=== PATIENT | female | born 1955 | race Caucasian/White ===

== ENCOUNTER → 2017-07-07 | Outpatient (CLI) | payer BC, OTHER ==
[~2017-07-07] MED LIST: ADAL40KI SC; ADAL40PE SC; AZAT50TA9 PO; CARI350T14 PO; CELE200C PO; CYAN10005 PO; CYANOCOBALAMIN IM; CYCL-259 PO; DOCU50CA3 PO; FURO20TA3 PO; GABA300C10 PO; HYDR-3245 PO; MULT-726 PO; ONDA4TAB13 SL; OXYC1TAB7 PO; OXYC5CAP2 PO; POLY17PO5 PO; POTA20PA25 PO; RANI150T4 PO; SERT100T5 PO; STOOL SOFTENER PO; TIZA4TAB PO; VITAMIN B-12 IM; ZOLP6.252 PO; [UNRECOGNIZED DRUG - REMARK]
[2017-07-07 14:58] LABS: HEMATOCRIT 46.5 % (34.6-47.8); HEMOGLOBIN 15.5 g/dL (11.7-16.4); WHITE BLOOD COUNT 6.3 x10^3/uL (3.4-10)
[2017-07-07 15:10] LABS: BLOOD UREA NITROGEN 12 mg/dL (7-18)
[2017-07-07 15:12] LABS: ASPARTATE AMINO TRANSFERASE 13 U/L (15-37)
== END | disposition home or self-care (01) ==
LOC: STAR 14:05
PROVIDERS: ATTEND Orthopaedic Surgery
DX: Z01.818 Encounter for other preprocedural examination (principal); M17.12 Unilateral primary osteoarthritis, left knee; R79.1 Abnormal coagulation profile; Z79.899 Other long term (current) drug therapy
CPT/HCPCS: 36415; 80053; 83036; 85025; 85610; 85730; 87081; 93005

== ENCOUNTER 2017-07-14 07:48 | Inpatient (IN) | payer BC, OTHER ==
[~2017-07-14] VITALS: Ht 172.7 cm; Wt 119.0 kg
[2017-07-14] MEDS ORDERED: LACTATED RINGERS 1,000 ML IV SCH (07:58)
[2017-07-14] MEDS ORDERED: SCOPOLAMINE PATCH, 1.5MG PATCH.TD72 TD STA (07:59)
[2017-07-14] MEDS ORDERED: FAMOTIDINE 20 MG TABLET PO STA (07:59)
[2017-07-14] MEDS ORDERED: ACETAMINOPHEN 500 MG TABLET PO STA (07:59)
[2017-07-14] MEDS ORDERED: OxyconTIN ER 10 MG TAB.ER PO STA (08:02)
[2017-07-14] MEDS ORDERED: VANCOMYCIN PER PHARMACY MC ONE (08:06)
[2017-07-14] MEDS ORDERED: ACETAMINOPHEN 500 MG TABLET ONE (08:48)
[2017-07-14] MEDS ORDERED: FAMOTIDINE 40 MG TABLET ONE (08:49)
[2017-07-14] MEDS ORDERED: OxyconTIN ER 10 MG TAB.ER ONE (08:49)
[2017-07-14] MEDS ORDERED: SCOPOLAMINE PATCH, 1.5MG PATCH.TD72 TD ONE ×2 (08:50→11:00)
[2017-07-14] MEDS ORDERED: VANCOMYCIN 2,000 MG in SODIUM CHLORIDE 0.9% 500 ML IV ONE (09:30)
[2017-07-14] MEDS ORDERED: FENTANYL PF 250 MCG/5ML ONE ×2 (09:56→10:56)
[2017-07-14] MEDS ORDERED: MIDAZOLAM 1 MG/ML, 2ML ONE ×2 (09:56→10:56)
[2017-07-14] MEDS ORDERED: BUPIVACAINE/PF 0.25% ONE (09:57)
[2017-07-14] MEDS ORDERED: KETOROLAC 60 MG/2 ML ONE (10:03)
[2017-07-14] MEDS ORDERED: TRANEXAMIC ACID 100 MG/ML, 10ML ONE ×2 (10:03)
[2017-07-14] MEDS ORDERED: EPINEPHRINE 1 MG/ML, 1ML ONE (10:04)
[2017-07-14] MEDS ORDERED: SODIUM CHLORIDE 0.9% 100 ML ONE (10:04)
[2017-07-14] MEDS ORDERED: ROPIvacaine/PF 0.5%, 30 ML ONE (10:04)
[2017-07-14] MEDS ORDERED: DEXAMETHASONE 4 MG/ML, 1ML ONE ×2 (10:25→10:56)
[2017-07-14] MEDS ORDERED: PROPOFOL 10 MG/ML, 20ML ONE ×2 (10:25→10:56)
[2017-07-14] MEDS ORDERED: CEFAZOLIN 1,000 MG ONE ×2 (10:25→10:56)
[2017-07-14] MEDS ORDERED: ONDANSETRON 2MG/ML, 2ML ONE ×2 (10:25→10:56)
[2017-07-14] MEDS ORDERED: ACETAMINOPHEN 500 MG TABLET PO ONE (10:30)
[2017-07-14] MEDS ORDERED: KETAMINE 10 MG/ML, 20ML ONE ×2 (10:56→11:08)
[2017-07-14] MEDS ORDERED: HYDROmorphone 2 MG/ML, 1ML ONE ×2 (10:56→11:08)
[2017-07-14] MEDS ORDERED: FAMOTIDINE 20 MG TABLET PO PRN (11:00)
[2017-07-14] MEDS ORDERED: SENNA/DOCUSATE TABLET PO PRN (11:00)
[2017-07-14] MEDS ORDERED: MAGNESIUM HYDROXIDE 8%, 30ML UDC PO PRN (11:00)
[2017-07-14] MEDS ORDERED: ACETAMINOPHEN 650 MG/20.3 ML UDC PO PRN (11:00)
[2017-07-14] MEDS ORDERED: ZOLPIDEM 5MG TABLET PO PRN (11:00)
[2017-07-14] MEDS ORDERED: BISACODYL 10 MG SUPP PR PRN (11:00)
[2017-07-14] MEDS ORDERED: ONDANSETRON 2MG/ML, 2ML IV PRN (11:00)
[2017-07-14] MEDS ORDERED: DIPHENHYDRAMINE 50 MG CAPSULE PO PRN (11:00)
[2017-07-14] MEDS ORDERED: ONDANSETRON ODT 4 MG PO PRN (11:00)
[2017-07-14] MEDS ORDERED: ROPIvacaine/PF 0.2%, 100ML 550 ML (check volume) INJ ONE (11:30)
[2017-07-14] MEDS ORDERED: VANCOMYCIN 1,000 MG ONE (11:51)
[2017-07-14] MEDS ORDERED: ACETAMINOPHEN 325 MG TABLET PO PRN (12:00)
[2017-07-14] MEDS ORDERED: DIAZEPAM 5 MG/ML, 2ML IVPush PRN (12:00)
[2017-07-14] MEDS ORDERED: OXYcodone 5 MG/5 ML ORAL.SOL UDC PO PRN (12:00)
[2017-07-14] MEDS ORDERED: ALBUTEROL/IPRATROPIUM 2.5MG/0.5MG, 3 ML NPPB PRN (12:00)
[2017-07-14] MEDS ORDERED: MEPERIDINE/PF 25MG/0.5ML IVPush PRN (12:00)
[2017-07-14] MEDS ORDERED: LABETALOL 5MG/ML, 20ML IV PRN (12:00)
[2017-07-14] MEDS ORDERED: hydrALAzine 20 MG/ML, 1ML IV PRN (12:00)
[2017-07-14] MEDS ORDERED: HYDROmorphone 1 MG/ML, 1ML IV PRN (12:00)
[2017-07-14] MEDS ORDERED: FENTANYL PF 100 MCG/2ML IV PRN (12:00)
[2017-07-14] MEDS ORDERED: MIDAZOLAM 1 MG/ML, 2ML IV PRN (12:00)
[2017-07-14] MEDS ORDERED: PROMETHAZINE 25 MG/ML, 1ML IV PRN (12:00)
[2017-07-14] MEDS ORDERED: LORazepam 2 MG/ML, 1ML IVPush PRN (12:00)
[2017-07-14] MEDS ORDERED: ONDANSETRON 2MG/ML, 2ML IVPush PRN (12:00)
[2017-07-14] MEDS ORDERED: FENTANYL PF 100 MCG/2ML ONE (12:39)
[2017-07-14] MEDS ORDERED: ACETAMINOPHEN 650 MG/20.3 ML UDC ONE (12:39)
[2017-07-14] MEDS ORDERED: OXYcodone 5 MG/5 ML ORAL.SOL UDC ONE (12:39)
[2017-07-14] MEDS: HYDROmorphone 1 MG/ML, 1ML IV PRN ×4 (14:25→18:14)
[2017-07-14] MEDS: NS + 20MEQ KCL 1,000 ML IV SCH ×2 (15:42→22:44)
[2017-07-14] MEDS: OXYcodone IR 5MG TABLET PO PRN ×2 (18:03→22:48)
[2017-07-14] MEDS: ASPIRIN 81 MG TABLET EC PO SCH (18:03)
[2017-07-14] MEDS: CEFAZOLIN PMX 2GM/50ML 50 ML IVPB SCH (19:35)
[2017-07-14] MEDS: HYDROcodone/APAP 5/325 TABLET PO PRN (19:35)
[2017-07-14 20:42] VITALS: BP 109/67
[2017-07-14] MEDS: DOCUSATE 100 MG CAPSULE PO SCH (20:51)
[2017-07-14] MEDS: SERTRALINE 100MG TABLET PO SCH (20:51)
[2017-07-14] MEDS: TIZANIDINE 4MG TABLET PO SCH (20:51)
[2017-07-14] MEDS ORDERED: ZOLPIDEM 10MG TABLET PO SCH (21:00)
[2017-07-15 00:52] VITALS: BP 121/79
[2017-07-15] MEDS: HYDROcodone/APAP 5/325 TABLET PO PRN ×2 (01:01→05:01)
[2017-07-15] MEDS ORDERED: OXYC10TA6 PO (01:52)
[2017-07-15] MEDS ORDERED: TRAM50TA2 PO (01:53)
[2017-07-15] MEDS ORDERED: MELO7.5T31 PO (01:55)
[2017-07-15] MEDS ORDERED: ONDA4TAB7 PO (01:55)
[2017-07-15] MEDS: CEFAZOLIN PMX 2GM/50ML 50 ML IVPB SCH (03:48)
[2017-07-15 04:34] VITALS: BP 105/62
[2017-07-15 05:12] LABS: HEMOGLOBIN 12.7 g/dL (11.7-16.4)
[2017-07-15] MEDS ORDERED: DEXAMETHASONE 4 MG/ML, 1ML IVPush SCH (06:00)
[2017-07-15] MEDS: ASPIRIN 81 MG TABLET EC PO SCH (06:04)
[2017-07-15] MEDS ORDERED: HYDR2TAB29 PO (06:08)
[2017-07-15] MEDS ORDERED: FUROSEMIDE 20 MG TABLET PO SCH (09:00)
[2017-07-15] MEDS ORDERED: POTASSIUM CHLORIDE 20 MEQ PACKET PO SCH (09:00)
[2017-07-15] MEDS: SERTRALINE 100MG TABLET PO SCH (09:32)
[2017-07-15] MEDS: TIZANIDINE 4MG TABLET PO SCH (09:32)
[2017-07-15] MEDS: DOCUSATE 100 MG CAPSULE PO SCH (09:32)
[2017-07-15] MEDS: OXYcodone IR 5MG TABLET PO PRN (09:32)
[2017-07-15] MEDS: NS + 20MEQ KCL 1,000 ML IV SCH (10:54)
[2017-07-15 11:57] VITALS: BP 100/63
== END 2017-07-15 12:25 | disposition home or self-care (01) | DRG 470 ==
LOC: ORIP 07:48 → 4NOR 14:04
PROVIDERS: ADMIT Orthopaedic Surgery; ATTEND Orthopaedic Surgery
PROC: 0SRD0J9 Replacement of Left Knee Joint with Synthetic Substitute, Cemented, Open Approach (ICD-10-PCS; principal; 2017-07-14 11:20)
DX: M17.12 Unilateral primary osteoarthritis, left knee (principal); K50.90 Crohn's disease, unspecified, without complications; K21.9 Gastro-esophageal reflux disease without esophagitis; M16.11 Unilateral primary osteoarthritis, right hip
CPT/HCPCS: 36415; 85014; 85018; J0171; J0690; J1100; J1170; J1885; J2250; J2405; J2704; J2795; J3010; J3370; J3480; J3490; Q0162; J7120

== ENCOUNTER 2018-10-11 10:19 | Day surgery (SDC) | payer BC, OTHER ==
[2018-10-09 14:45] LABS: ALANINE AMINOTRANSFERASE 23 U/L (12-78); ALBUMIN 3.9 g/dL (3.4-5.0); ANION GAP 8 mmol/L (5-15); CALCIUM 8.9 mg/dL (8.5-10.1); CHLORIDE 108 mmol/L (98-107); CREATININE 0.78 mg/dL (0.55-1.02)
[2018-10-09 14:47] LABS: ALKALINE PHOSPHATASE 98 U/L (45-117); BILIRUBIN,TOTAL 0.5 mg/dL (0.2-1.0); TOTAL PROTEIN 7.3 g/dL (6.4-8.2)
[~2018-10-11] VITALS: Ht 175.3 cm; Wt 106.4 kg
[~2018-10-11 10:19] MED LIST changes: +BUPIVACAINE/PF-EPI 0.5% 1:200K ONE; +HYDR2TAB29 PO; +LIDOCAINE 1%-EPI 1:100K, 30ML ONE; +MELO7.5T31 PO; +MULT-709 PO; +ONDA4TAB7 PO; +OXYC10TA6 PO; +SERT100T32 PO; -SERT100T5 PO; +TRAM50TA2 PO; +trintellix PO
[2018-10-11] MEDS ORDERED: LACTATED RINGERS 1,000 ML IV SCH (10:43)
[2018-10-11 10:49] VITALS: BP 135/77
[2018-10-11] MEDS ORDERED: MIDAZOLAM 1 MG/ML, 2ML ONE (11:41)
[2018-10-11] MEDS ORDERED: FENTANYL PF 100 MCG/2ML ONE (11:41)
[2018-10-11] MEDS ORDERED: TEMPLATE NON-FORMULARY MED. (Ranitidine Hcl** 150 MG) PO SCH (13:00)
[2018-10-11] MEDS ORDERED: DEXAMETHASONE 4 MG/ML, 5ML ONE (13:25)
[2018-10-11] MEDS ORDERED: ROCURONIUM 10 MG/ML,10ML ONE (13:25)
[2018-10-11] MEDS ORDERED: HYDROmorphone 2 MG/ML, 1ML IVPush PRN (14:00)
[2018-10-11] MEDS ORDERED: MIDAZOLAM 1 MG/ML, 2ML IV PRN (14:00)
[2018-10-11] MEDS ORDERED: METOPROLOL 1 MG/ML, 5ML IV PRN (14:00)
[2018-10-11] MEDS ORDERED: OXYcodone 5 MG/5 ML ORAL.SOL UDC PO PRN (14:00)
[2018-10-11] MEDS ORDERED: hydrALAzine 20 MG/ML, 1ML IV PRN (14:00)
[2018-10-11] MEDS ORDERED: FENTANYL PF 100 MCG/2ML IV PRN (14:00)
[2018-10-11] MEDS ORDERED: PROMETHAZINE 25 MG/ML, 1ML IV PRN (14:00)
[2018-10-11] MEDS ORDERED: MEPERIDINE/PF 25MG/0.5ML IVPush PRN (14:00)
[2018-10-11] MEDS ORDERED: ONDANSETRON 2MG/ML, 2ML IV PRN (14:00)
[2018-10-11] MEDS ORDERED: ACETAMINOPHEN 325 MG TABLET PO PRN (14:00)
[2018-10-11] MEDS ORDERED: ALBUTEROL/IPRATROPIUM 2.5MG/0.5MG, 3 ML NPPB PRN (14:00)
[2018-10-11] MEDS ORDERED: CEFAZOLIN 1,000 MG ONE (14:11)
[2018-10-11] MEDS ORDERED: EPHEDRINE 50 MG/ML, 1ML ONE (14:11)
[2018-10-11] MEDS ORDERED: SUCCINYLCHOLINE 20 MG/ML, 10ML ONE (14:11)
[2018-10-11] MEDS ORDERED: LIDOCAINE-MPF 2% ,5ML ONE (14:11)
[2018-10-11] MEDS ORDERED: ONDANSETRON 2MG/ML, 2ML ONE (14:11)
[2018-10-11] MEDS ORDERED: GLYCOPYRROLATE 0.2MG/1ML, 5ML ONE (14:11)
[2018-10-11] MEDS ORDERED: BUPIVACAINE/PF 0.5% ONE (14:11)
[2018-10-11] MEDS ORDERED: PROPOFOL 10 MG/ML, 20ML ONE (14:11)
[2018-10-11] MEDS ORDERED: TIZANIDINE 4MG TABLET PO SCH (21:00)
[2018-10-12] MEDS ORDERED: FUROSEMIDE 20 MG TABLET PO SCH (09:00)
== END 2018-10-11 17:44 | disposition home or self-care (01) ==
LOC: OUT 10:19
PROVIDERS: ATTEND Orthopaedic Surgery
DX: S43.432A Superior glenoid labrum lesion of left shoulder, initial encounter (principal); M75.112 Incomplete rotator cuff tear or rupture of left shoulder, not specified as traumatic; M75.42 Impingement syndrome of left shoulder; M19.012 Primary osteoarthritis, left shoulder; K21.9 Gastro-esophageal reflux disease without esophagitis; E66.9 Obesity, unspecified; I10 Essential (primary) hypertension; X58.XXXA Exposure to other specified factors, initial encounter; Y93.89 Activity, other specified; Y92.89 Other specified places as the place of occurrence of the external cause; Y99.8 Other external cause status; Z68.34 Body mass index [BMI] 34.0-34.9, adult; Z72.89 Other problems related to lifestyle
CPT/HCPCS: 29823; 29824; 29826; 36415; 64415; 80053; 93005; J0330; J0690; J1100; J2250; J2405; J2704; J3010; J3490; J7120